=== PATIENT | female | born 1970 | race American Indian/Alaskan Native ===

== ENCOUNTER 2018-04-13 10:59 | Inpatient (IN) | payer MEDICAID ==
[2018-04-13] MEDS ORDERED: SOLU-Medrol IV ONE (11:28)
--- NOTE | 2018-04-13 11:29 | Emergency Department Report ---
ED Asthma HPI - General Chief Complaint: Adult Asthma Stated Complaint: Time Seen by Provider: 04/13/18 11:15 Source: patient, EMS Mode of arrival: Stretcher Limitations: No Limitations - History of Present Illness Initial Comments: He is a 47-year-old female presents to emergency room with complaints of shortness of breath and asthma attack. Patient states she's been getting short of breath and wheezing over the last week but however today her nebs and inhalers were not working and she is having a great deal of distress. Patient states that she had a upper respiratory infection will last few days. Patient states she has a long history of asthma. Patient denies fever and chills. Patient complains of dry cough. Patient denies abdominal pain and chest pain. He states shortness of breath is better with medications and rest. Patient states the shortness of breath worse with exertion. MD Complaint: "asthma attack", shortness of breath, wheezing -: Gradual Asthma History: childhood onset Severity: severe Context: recent URI Associated Symptoms: dry cough. denies: productive cough, fever, chest pain, hemoptysis, leg edema, syncope Treatments Prior to Arrival: inhaled bronchodilator - Related Data Current Asthma Therapy: inhaled bronchodilator Home Medications Medication Instructions Recorded Confirmed Last Taken No Known Home Medications [No 04/13/18 04/13/18 Unknown Reported Home Medications] Allergies Allergy/AdvReac Type Severity Reaction Status Date / Time No Known Allergies Allergy Unverified 04/13/18 11:14 ED Review of Systems ROS: Stated complaint: Other details as noted in HPI Constitutional: denies: chills, fever Eyes: denies: eye pain, eye discharge, vision change ENT: denies: ear pain, throat pain Respiratory: cough, orthopnea, shortness of breath, SOB with exertion, SOB at rest, wheezing Cardiovascular: denies: chest pain, palpitations Endocrine: no symptoms reported Gastrointestinal: denies: abdominal pain, nausea, diarrhea Genitourinary: denies: urgency, dysuria, discharge Musculoskeletal: denies: back pain, joint swelling, arthralgia Skin: denies: rash, lesions Neurological: denies: headache, weakness, paresthesias Psychiatric: denies: anxiety, depression Hematological/Lymphatic: denies: easy bleeding, easy bruising ED Past Medical Hx - Past Medical History Previous Medical History?: Yes Hx Asthma: Yes - Surgical History Past Surgical History?: No - Family History Family history: no significant - Social History Smoking Status: Never Smoker Substance Use Type: None - Medications Home Medications: Home Medications Medication Instructions Recorded Confirmed Last Taken Type No Known Home Medications [No 04/13/18 04/13/18 Unknown History Reported Home Medications] ED Physical Exam - General Limitations: No Limitations General appearance: alert, in distress - Head Head exam: Present: atraumatic, normocephalic - Eye Eye exam: Present: normal appearance - ENT ENT exam: Present: mucous membranes dry - Neck Neck exam: Present: normal inspection - Respiratory Respiratory exam: Present: normal lung sounds bilaterally, respiratory distress , wheezes, rhonchi - Cardiovascular Cardiovascular Exam: Present: regular rate, normal rhythm. Absent: systolic murmur, diastolic murmur, rubs, gallop - GI/Abdominal GI/Abdominal exam: Present: soft, normal bowel sounds - Extremities Exam Extremities exam: Present: normal inspection - Back Exam Back exam: Present: normal inspection - Neurological Exam Neurological exam: Present: alert, oriented X3 - Psychiatric Psychiatric exam: Present: normal affect, normal mood - Skin Skin exam: Present: warm, dry, intact, normal color. Absent: rash ED Course Vital Signs 04/13/18 04/13/18 04/13/18 12:30 13:00 13:02 Temperature 98.4 F Pulse Rate 87 87 84 Respiratory 11 L 16 13 Rate Blood Pressure 131/79 Blood Pressure 122/85 [Left] O2 Sat by Pulse 96 97 Oximetry 04/13/18 13:03 Temperature Pulse Rate Respiratory 18 Rate Blood Pressure Blood Pressure [Left] O2 Sat by Pulse 97 Oximetry - Reevaluation(s) Reevaluation #1: Patient states she feels better however patient still having wheezing 04/13/18 12:49 Patient still wheezing as well as rhonchi. Patient states she feels better. Will admit patient to [facility] for further evaluation and treatment 04/13/18 13:29 - Consultations Consultation #1: Hospital was consulted for admission. Hospitalist to admit patient. Dr Ordaz to assume care. 04/13/18 13:59 ED Medical Decision Making - Lab Data Result diagrams: 04/13/18 11:19 04/13/18 11:19 - EKG Data -: EKG Interpreted by Me EKG shows normal: sinus rhythm, axis, intervals, QRS complexes, ST-T waves Rate: normal - EKG Data Interpretation: [facility] - Radiology Data Radiology results: report reviewed, image reviewed interpreted by me: nl cxr. PA CHEST: SOB. PA view of the chest demonstrates a normal mediastinal and cardiac contour with clear lungs and normal bony and soft tissue structures. IMPRESSION: Normal PA chest. Transcribed By: RENATO Dictated By: STEPHANI DE LEON MD Electronically Authenticated By: STEPHANI DE LEON MD Signed Date/Time: 04/13/18 1323 - Medical Decision Making Patient 47-year-old that presents to the emergency room for asthma exacerbation. Patient required multiple therapies in order to improve her lungs however the patient is still wheezing with rhonchi - Differential Diagnosis asthma, COPD exacerbation. Shortness of breath. Pneumonia. Bronchitis. Critical care attestation.: If time is entered above; I have spent that time in minutes in the direct care of this critically ill patient, excluding procedure time. ED Disposition Clinical Impression: Shortness of breath Asthma exacerbation Qualifiers: Asthma severity: severe Asthma persistence: unspecified Qualified Code(s): J45.901 - Unspecified asthma with (acute) exacerbation Disposition: 09 OP ADMIT IP TO THIS HOSP Is pt being admited?: Yes Does the pt Need Aspirin: No Condition: Serious Time of Disposition: 13:59
[2018-04-13 11:38] LABS: Basophils % (Auto) 0.4 % (0.0-1.8); Eosinophils # (Auto) 0.3 K/mm3 (0.0-0.4); Eosinophils % (Auto) 6.6 % (0.0-4.3); Hematocrit 39.3 % (30.3-42.9); Hemoglobin 12.9 gm/dl (10.1-14.3); Lymphocytes # (Auto) 1.8 K/mm3 (1.2-5.4); Lymphocytes % (Auto) 33.7 % (13.4-35.0); Mean Corpuscular HGB Conc 33 % (30-34); Mean Corpuscular Hemoglobin 30 pg (28-32); Mean Corpuscular Volume 90 fl (79-97); Monocytes # (Auto) 0.6 K/mm3 (0.0-0.8); Monocytes % (Auto) 10.9 % (0.0-7.3); Platelet Count 247 K/mm3 (140-440); Red Blood Count 4.35 M/mm3 (3.65-5.03)
[2018-04-13 11:55] LABS: BUN/Creatinine Ratio 17; Blood Urea Nitrogen 10 mg/dL (7-17); Calcium 9.2 mg/dL (8.4-10.2); Hemolysis Index 6
[2018-04-13] MEDS ORDERED: MAGNESIUM SULFATE 1 GM in NACL 0.9% 50 ML IV ONE (12:00)
[2018-04-13 12:45] LABS: Creatine Kinase MB 1.9 ng/mL (0.0-4.0)
[2018-04-13 12:51] LABS: Alanine Aminotransferase 14 units/L (7-56); Albumin 4.3 g/dL (3.9-5)
[2018-04-13 12:52] LABS: Bilirubin,Direct < 0.2 mg/dL (0-0.2)
--- NOTE | 2018-04-13 13:42 | XRay Report ---
PA CHEST: SOB. PA view of the chest demonstrates a normal mediastinal and cardiac contour with clear lungs and normal bony and soft tissue structures. IMPRESSION: Normal PA chest.
[2018-04-13] MEDS ORDERED: ROCEPHIN/NS 1 GM/50 ML 1 GM/50 ML BAG IV ONE (14:04)
--- NOTE | 2018-04-13 16:45 | History and Physical Report ---
History of Present Illness Chief complaint: Im having a problem with my breathing History of present illness: 47 YO Female with Asthma presents to ED for evaluation. Pt states that she has experienced shortness of breath for the past 1 week, with worsening symptoms over the past 3 days. Pt acknowledges increased use of rescue inhalers, and nebulizer therapy which have not provided relief of symptoms. Pt also states that she had an upper respiratory infection within the last few days. Patient denies fever, chills, CP, palpitations, NVD, syncope, trauma, productive cough, unilateral leg pain, calf pain, prolonged travel/immobility, individual/family history of DVT/PE. EMS notified, and upon arrival the patient was found to have respiratory distress. Pt transported to [facility] for further care and evaluation. Pt seen and evaluated in ED and found to have Acute Respiratory Failure and Status Asthmaticus. Pt admitted to medical floor. Past History Past Medical History: other (Asthma) Past Surgical History: No surgical history, Other (reviewed) Social history: , lives with family. denies: smoking, alcohol abuse, prescription drug abuse Family history: hypertension Medications and Allergies Allergies Allergy/AdvReac Type Severity Reaction Status Date / Time No Known Allergies Allergy Unverified 04/13/18 11:14 Home Medications Medication Instructions Recorded Confirmed Last Taken Type No Known Home Medications [No 04/13/18 04/13/18 Unknown History Reported Home Medications] Review of Systems Constitutional: no weight loss, no weight gain, no fever, no chills Ears, nose, mouth and throat: post-nasal drip, no ear pain, no ear discharge, no tinnitis, no decreased hearing, no nose pain, no nasal congestion Breasts: no change in shape, no swelling, no mass Cardiovascular: no chest pain, no orthopnea, no palpitations, no rapid/ irregular heart beat, no edema Respiratory: cough, shortness of breath, no cough with sputum, no excessive sputum Gastrointestinal: no abdominal pain, no nausea, no vomiting, no diarrhea Genitourinary Female: no pelvic pain, no flank pain, no menorrhagia, no dysuria , no urinary frequency, no urgency Rectal: no pain, no incontinence, no bleeding Musculoskeletal: no neck stiffness, no neck pain, no shooting arm pain, no arm numbness/tingling, no low back pain, no shooting leg pain, no leg numbness/ tingling, no redness of joints Integumentary: no rash, no pruritis, no redness, no sores, no wounds Neurological: no transient paralysis, no paralysis, no weakness, no parathesias , no tingling, no seizures Psychiatric: no memory loss, no change in sleep habits, no sleep disturbances, no insomnia, no hypersomnia, no change in appetite Endocrine: no cold intolerance, no heat intolerance, no polyphagia, no excessive thirst, no polydipsia, no polyuria Hematologic/Lymphatic: no easy bruising, no easy bleeding Allergic/Immunologic: no urticaria, no allergic rhinitis, no wheezing, no persistent infections, no anaphylaxis Exam - Constitutional Vitals: Temp Pulse Resp BP Pulse Ox 98.4 F 84 18 122/85 97 04/13/18 13:02 04/13/18 13:02 04/13/18 13:03 04/13/18 13:02 04/13/18 13:03 General appearance: Present: mild distress - EENT Eyes: Present: PERRL ENT: hearing intact, clear oral mucosa - Neck Neck: Present: supple, normal ROM - Respiratory Respiratory effort: normal, labored Respiratory: bilateral: diminished, wheezing - Cardiovascular Heart Sounds: Present: S1 & S2. Absent: rub, click - Extremities Extremities: pulses symmetrical, No edema Peripheral Pulses: within normal limits - Abdominal General gastrointestinal: Present: soft, non-tender, non-distended, normal bowel sounds Female genitourinary: Present: normal - Integumentary Integumentary: Present: clear, warm, dry - Musculoskeletal Musculoskeletal: gait normal, strength equal bilaterally - Psychiatric Psychiatric: appropriate mood/affect, intact judgment & insight - Neurologic Neurologic: CNII-XII intact, moves all extremities Results - Labs CBC & Chem 7: 04/13/18 11:19 04/13/18 11:19 Labs: Abnormal lab results 04/13/18 04/13/18 Range/Units 11:19 11:19 Sac % (Auto) 10.9 H (0.0-7.3) % Eos % (Auto) 6.6 H (0.0-4.3) % Creatinine 0.6 L (0.7-1.2) mg/dL Assessment and Plan - Patient Problems (1) Respiratory failure Current Visit: Yes Status: Acute Qualifiers: Chronicity: acute Respiratory failure complication: hypoxia Qualified Code(s): J96.01 - Acute respiratory failure with hypoxia Plan to address problem: Supplemental oxygen, nebulizer therapy, Chest X ray, NIPPV as clinically indicated, pulse oximetry, (2) Asthma exacerbation Current Visit: Yes Status: Acute Qualifiers: Asthma severity: severe Asthma persistence: unspecified Qualified Code(s) : J45.901 - Unspecified asthma with (acute) exacerbation Plan to address problem: IV steroid therapy, nebulizer therapy, supplemental oxygen, Magnesium sulfate, (3) DVT prophylaxis Current Visit: Yes Status: Acute Plan to address problem: SCD to BLE while in bed.
[2018-04-13] MEDS ORDERED: ZOFRAN IV PRN (16:46)
[2018-04-13] MEDS ORDERED: PROVENTIL IH PRN (16:46)
[2018-04-13] MEDS ORDERED: SODIUM CHLORIDE FLUSH SYRINGE 10 ML IV PRN (16:46)
[2018-04-13] MEDS ORDERED: TYLENOL PO PRN (16:46)
[2018-04-13] MEDS: ZITHROMAX 500 MG in NACL 0.9% 250ML 250 ML IV SCH (18:50)
[2018-04-13] MEDS: PULMICORT IH SCH (19:26)
[2018-04-13] MEDS: SOLU-Medrol IV SCH (22:35)
[2018-04-13] MEDS: SODIUM CHLORIDE FLUSH SYRINGE 10 ML IV SCH (22:35)
[2018-04-14] MEDS: PULMICORT IH SCH ×2 (07:54→20:34)
--- NOTE | 2018-04-14 09:17 | Progress Note ---
Assessment and Plan Assessment and plan: 47-year-old male with past medical history significant for asthma presented to the emergency department complaining of shortness of breath despite increased use of rescue inhaler Acute hypoxic respiratory failure Asthma exacerbation - Patient is on IV salmeterol, oxygen support, azithromycin, nebulizer treatment - Patient showed some improvement DVT prophylaxis - On Lovenox Disposition - continue inpatient care History Interval history: Patient was seen and evaluated this morning, patient showed some improvement in her breathing, but getting better. Hospitalist Physical - Physical exam Narrative exam: Not in cardiopulmonary distress. The patient appeared well nourished and normally developed. Vital signs as documented. Head exam is unremarkable. No scleral icterus . Neck is without jugular venous distension, thyromegaly, or carotid bruits. Lungs wheezing gone over the chest. Cardiac exam reveals regular rate and Rhythm. First and second heart sounds normal. No murmurs, rubs or gallops. Abdominal exam reveals normal bowel sounds, no masses, no organomegaly and no aortic enlargement. Extremities are nonedematous and both femoral and pedal pulses are normal. MOLDER FEEDER: Alert and oriented 3. No focal weakness. - Constitutional Vitals: Temp Pulse Resp BP Pulse Ox 98.2 F 98 H 18 114/59 95 04/14/18 05:54 04/14/18 08:03 04/14/18 08:03 04/14/18 05:54 04/14/18 07:55 General appearance: Present: mild distress Results - Labs CBC & Chem 7: 04/13/18 11:19 04/13/18 11:19 Labs: Laboratory Last Values WBC 5.2 K/mm3 (4.5-11.0) 04/13/18 11:19 RBC 4.35 M/mm3 (3.65-5.03) 04/13/18 11:19 Hgb 12.9 gm/dl (10.1-14.3) 04/13/18 11:19 Hct 39.3 % (30.3-42.9) 04/13/18 11:19 MCV 90 fl (79-97) 04/13/18 11:19 MCH 30 pg (28-32) 04/13/18 11:19 MCHC 33 % (30-34) 04/13/18 11:19 RDW 14.0 % (13.2-15.2) 04/13/18 11:19 Plt Count 247 K/mm3 (140-440) 04/13/18 11:19 Lymph % (Auto) 33.7 % (13.4-35.0) 04/13/18 11:19 [place] % (Auto) 10.9 % (0.0-7.3) H 04/13/18 11:19 Eos % (Auto) 6.6 % (0.0-4.3) H 04/13/18 11:19 Baso % (Auto) 0.4 % (0.0-1.8) 04/13/18 11:19 Lymph # 1.8 K/mm3 (1.2-5.4) 04/13/18 11:19 [place] # 0.6 K/mm3 (0.0-0.8) 04/13/18 11:19 Eos # 0.3 K/mm3 (0.0-0.4) 04/13/18 11:19 Baso # 0.0 K/mm3 (0.0-0.1) 04/13/18 11:19 Seg Neutrophils % 48.4 % (40.0-70.0) 04/13/18 11:19 Seg Neutrophils # 2.5 K/mm3 (1.8-7.7) 04/13/18 11:19 Sodium 139 mmol/L (137-145) 04/13/18 11:19 Potassium 3.7 mmol/L (3.6-5.0) 04/13/18 11:19 Chloride 101.0 mmol/L (98-107) 04/13/18 11:19 Carbon Dioxide 26 mmol/L (22-30) 04/13/18 11:19 Anion Gap 16 mmol/L 04/13/18 11:19 BUN 10 mg/dL (7-17) 04/13/18 11:19 Creatinine 0.6 mg/dL (0.7-1.2) L 04/13/18 11:19 Estimated GFR > 60 ml/min 04/13/18 11:19 BUN/Creatinine Ratio 17 % 04/13/18 11:19 Glucose 96 mg/dL (65-100) 04/13/18 11:19 Calcium 9.2 mg/dL (8.4-10.2) 04/13/18 11:19 Total Bilirubin 0.40 mg/dL (0.1-1.2) 04/13/18 11:19 Direct Bilirubin < 0.2 mg/dL (0-0.2) 04/13/18 11:19 AST 19 units/L (5-40) 04/13/18 11:19 ALT 14 units/L (7-56) 04/13/18 11:19 Alkaline Phosphatase 71 units/L (35-129) 04/13/18 11:19 Total Creatine Kinase 123 units/L (30-135) 04/13/18 11:19 CK-MB (CK-2) 1.9 ng/mL (0.0-4.0) 04/13/18 11:19 CK-MB (CK-2) Rel Index 1.5 (0-4) 04/13/18 11:19 Troponin T < 0.010 ng/mL (0.00-0.029) 04/13/18 11:19 Total Protein 7.4 g/dL (6.3-8.2) 04/13/18 11:19 Albumin 4.3 g/dL (3.9-5) 04/13/18 11:19 Albumin/Globulin Ratio 1.4 % 04/13/18 11:19
[2018-04-14] MEDS: ZITHROMAX 500 MG in NACL 0.9% 250ML 250 ML IV SCH (10:12)
[2018-04-14] MEDS: SOLU-Medrol IV SCH ×2 (10:13→22:47)
[2018-04-14] MEDS: SODIUM CHLORIDE FLUSH SYRINGE 10 ML IV SCH ×2 (10:15→22:47)
[2018-04-14] MEDS ORDERED: LOVENOX SUB-Q SCH (22:00)
[2018-04-15] MEDS: PULMICORT IH SCH (08:55)
--- NOTE | 2018-04-15 10:41 | Discharge Summary ---
Providers - Providers Date of Admission: 04/13/18 16:46 Attending physician: APPLE NGUYỄN MD Primary care physician: OIL HEATERMAN Hospitalization Reason for admission: Asthma exacerbation Condition: Serious Disposition: DC-01 TO HOME OR SELFCARE Time spent for discharge: 34 minutes - Discharge Diagnoses (1) Asthma exacerbation Status: Acute Qualifiers: Asthma severity: severe Asthma persistence: unspecified Qualified Code(s) : J45.901 - Unspecified asthma with (acute) exacerbation (2) Respiratory failure Status: Acute Qualifiers: Chronicity: acute Respiratory failure complication: hypoxia Qualified Code(s): J96.01 - Acute respiratory failure with hypoxia (3) Shortness of breath Status: Acute Core Measure Documentation - Palliative Care Palliative Care/ Comfort Measures: Not Applicable - Core Measures Any of the following diagnoses?: none Exam - Physical Exam Narrative exam: Not in cardiopulmonary distress. The patient appeared well nourished and normally developed. Vital signs as documented. Head exam is unremarkable. No scleral icterus . Neck is without jugular venous distension, thyromegaly, or carotid bruits. Lungs scattered wheezing over the chest. Cardiac exam reveals regular rate and Rhythm. First and second heart sounds normal. No murmurs, rubs or gallops. Abdominal exam reveals normal bowel sounds, no masses, no organomegaly and no aortic enlargement. Extremities are nonedematous and both femoral and pedal pulses are normal. COLOR EXPERT: Alert and oriented 3. No focal weakness. - Constitutional Vitals: Temp Pulse Resp BP Pulse Ox 97.8 F 82 18 104/58 98 04/15/18 06:08 04/15/18 06:08 04/15/18 06:08 04/15/18 06:08 04/15/18 06:08 Plan Activity: no restrictions Diet: regular Additional Instructions: F/U in 1-2 weeks at [facility] Follow up with: PRIMARY CARE, [Primary Care Provider] - 3-5 Days Prescriptions: ALBUTEROL Inhaler [ProAir HFA Inhaler] 2 puff IH QID PRN #1 can PRN Reason: Shortness Of Breath ALBUTEROL NEB's [Proventil 0.083% NEBS] 2.5 mg IH Q4HRT PRN #60 nebu PRN Reason: Shortness Of Breath Azithromycin 250 mg PO DAILY #5 tablet Budesonide [Pulmicort Respules] 0.5 mg IH Q12HRT #30 nebu Nebulizer [Aeroneb Go Nebulizer] 1 each MC DAILY #1 each Prednisone [predniSONE 10 mg (6-Day Pack, 21 Tabs)] 10 mg PO .TAPER #1 tab.ds.pk
[2018-04-15 13:23] VITALS: BP 114/63
== END 2018-04-15 14:30 | disposition home or self-care (01) | DRG 189 ==
LOC: ED 10:59 → 3A 16:46
PROVIDERS: ADMIT Internal Medicine; ATTEND Internal Medicine
DX: J96.01 Acute respiratory failure with hypoxia (principal); J45.901 Unspecified asthma with (acute) exacerbation; Z82.49 Family history of ischemic heart disease and other diseases of the circulatory system; Z86.718 Personal history of other venous thrombosis and embolism
CPT/HCPCS: 36415; 71045; 80048; 80074; 82550; 82553; 84484; 85025; 93005; 93010; 94640; 96365; 96367; 96375; J0456; J0696; J1650; J2920; J2930; J3475; J7050